=== PATIENT | male | born 1930 | race Caucasian/White ===

== ENCOUNTER → 2018-11-11 | Outpatient (CLI) | payer MEDICARE ==
[~2018-11-11] MED LIST: DIATRIZOATE MEGL/DIATRIZOA SOD 30 ML BTL PO ONE; LOSARTAN-HCTZ1 EAC1; XARELTO15 MG PO; Z.0.ASPIR 8181 MG PO; Z.0.CARDURA1 MG; Z.0.LIPITOR10 MG; Z.0.LISINOPRIL10 MG; Z.0.SYNTHROID25 MCG PO
--- NOTE | 2018-11-11 16:12 | Diagnostic Imaging Report ---
EXAM: CT Chest, Abdomen and Pelvis WITHOUT intravenous contrast INDICATION: Weight loss, reported history of multiple myeloma COMPARISON: None. TECHNIQUE: The chest, abdomen and pelvis were scanned utilizing a multidetector helical scanner from the thoracic inlet to the pubic symphysis without administration of IV contrast. Coronal and sagittal reformations were obtained. Routine protocol was performed. IV CONTRAST: None ORAL CONTRAST: Gastrografin RADIATION DOSE: Total DLP: 919.4 mGy*cm Dose modulation, iterative reconstruction, and/or weight based adjustment of the mA/kV was utilized to reduce the radiation dose to as low as reasonably achievable. FINDINGS: LINES/ TUBES: None. LUNGS AND AIRWAYS: The central airways are patent. There is posterior left lower lobe consolidation with cutoff of several left lower lobe segmental bronchi. Bilateral upper lobe predominant centrilobular emphysema. Lingular 1.9 x 1.5 cm nodule and multiple scattered left lower lobe nodules measuring up to 7 mm (series 3 image 85) Anterior right upper lobe groundglass nodule measures up to 2.1 cm (series 2 image 21). 8mm posterior right upper lobe solid nodule (series 3 image 48). PLEURA: No pleural effusion. No pneumothorax. HEART AND MEDIASTINUM: The thyroid gland is not well visualized. No supraclavicular or axillary lymphadenopathy. Multiple prominent mediastinal lymph nodes, most notably at the AP window measuring up to 2.1 x 1.9 cm (series 2 image 24). The heart is not enlarged. No pericardial effusion. Diffuse atherosclerotic calcifications involve the coronary arteries and thoracic aorta. The main pulmonary artery is enlarged, measuring up to 4.2 cm which can be seen with pulmonary artery hypertension. HEPATOBILIARY: No focal liver lesion. Status post cholecystectomy. SPLEEN: No splenomegaly. PANCREAS: No focal masses or ductal dilatation. ADRENALS: No adrenal nodules. KIDNEYS/URETERS: Bilateral simple renal cysts measuring up to 11.7 x 10.4 cm on the left and 8.0 x 6.8 cm on the right. No renal calculi or hydronephrosis. PELVIC ORGANS/BLADDER: Unremarkable. PERITONEUM / RETROPERITONEUM: No free air or fluid. LYMPH NODES: No lymphadenopathy. VESSELS: Heavy diffuse atherosclerotic calcifications of the nonaneurysmal abdominal aorta and major branches. GI TRACT: Sigmoid and descending colon diverticulosis without CT evidence of diverticulitis. BONES AND SOFT TISSUES: Midline ventral abdominal hernia containing multiple loops of contrast opacified small bowel. No acute osseous injury. Diffuse os a PA and severe degenerative changes of the visualized spine. Multiple healed left posterior rib fractures. IMPRESSION: 1. Lingular 1.9 x 1.5 cm nodule and multiple scattered left lower lobe dependent nodules measuring up to 7 mm. In conjunction with dependent left lower lobe atelectasis and associated cutoff of several segmental left lower lobe bronchi, this may represent sequela of infection and/or aspiration. However, 3 month follow-up chest CT is recommended to assess for stability and/or resolution to exclude malignant etiologies. 2. Right upper lobe 2.1cm groundglass nodule. Followup CT in 3 months as above to assess for stability of this lesion as well. 3. Pulmonary artery enlargement to 4.2 cm which can be seen with pulmonary arterial hypertension. 4. Heavy diffuse atherosclerotic arterial calcifications, including of the coronary arteries. 5. Large bilateral renal cysts measuring up to 11.7 cm on the left and 8.0 cm on the right. No renal calculi or hydronephrosis. 6. Midline ventral abdominal hernia containing multiple loops of contrast opacified small bowel. Signed by: Radha Brooks MD on 11/11/2018 4:09 PM
== END ==
LOC: CT 14:07
PROVIDERS: ATTEND Internal Medicine Nephrology
DX: Z85.79 Personal history of other malignant neoplasms of lymphoid, hematopoietic and related tissues (principal); D47.2 Monoclonal gammopathy
CPT/HCPCS: 71250; 74176

== ENCOUNTER → 2018-11-18 | Outpatient (CLI) | payer MEDICARE ==
[~2018-11-18] MED LIST changes: -DIATRIZOATE MEGL/DIATRIZOA SOD 30 ML BTL PO ONE
--- NOTE | 2018-11-19 09:08 | Diagnostic Imaging Report ---
EXAMINATION: BONE SURVEY COMP INDICATION: Anemia in chronic kidney disease COMPARISON: Chest abdomen and pelvis CT of 11/11/2018 FINDINGS: Hands: No acute fracture or dislocation. Alignment is anatomic. Scattered degenerative changes. Small (4 mm) well-circumscribed lucent lesion at the base of the left third middle phalanx. No other radiographically apparent lucent or sclerotic lesions. Forearms: No acute fracture or dislocation. Alignment is anatomic. No radiographic apparent lucent or sclerotic lesions. Elbows: No acute fracture or dislocation. Alignment is anatomic. No radiographic apparent lucent or sclerotic lesions. Shoulders: No acute fracture or dislocation. Degenerative changes involve the acromioclavicular and glenohumeral joints on both sides. Subchondral cystic changes at the left glenoid. Cortical regularity at the left acromion may be related to remote healed fracture. No definite radiographically apparent lucent or sclerotic lesions. Chest: No acute fracture or dislocation. Multiple old left posterior rib fractures. No radiographically apparent lucent or sclerotic lesions. Mild biapical pleural parenchymal thickening/scarring. The right lung is relatively clear. Patchy airspace opacity at the left mid and lower lung, silhouetting the left hemidiaphragm corresponds with the findings of the chest CT of 11/11/2018. Unchanged cardiomegaly. Sternotomy wires unchanged. Spine: Severe degenerative changes of the cervical spine with grade 1 anterolisthesis at C2-3, C3-4, and C4-5 and marked disc space narrowing and osteophyte formation. Prevertebral soft tissues are normal in thickness. No acute fracture of the cervical, thoracic, or lumbar spine. Diffuse multilevel degenerative changes. Abdomen/pelvis: Nonobstructive bowel gas pattern. No free air. Status post cholecystectomy. Degenerative changes of the visualized spine. Mild degenerative changes of both hip joints. Phleboliths in the pelvis. Femurs: No acute fracture or dislocation. Alignment is anatomic. No radiographically apparent lucent or sclerotic lesions. Diffuse atherosclerotic calcifications left greater than right. Surgical clips along the left medial thigh. Knees: No acute fracture or dislocation. No radiographically apparent lucent or sclerotic lesions. Moderate medial compartment predominant degenerative changes of both knees with joint space narrowing and osteophyte formation. Diffuse atherosclerotic popliteal calcifications. Tibia/fibula: No acute fracture or dislocation. Alignment is anatomic. No radiographically apparent lucent or sclerotic lesions. Feet: No acute fracture or dislocation. Alignment is anatomic. No radiographically apparent lucent or sclerotic lesions. Scattered degenerative changes. Skull: No displaced fracture. Paranasal sinuses appear well aerated. No radiographically apparent lucent or sclerotic lesions. IMPRESSION: No radiographic evidence of diffuse osseous metastatic disease. Multifocal degenerative changes and old fractures as detailed above. Diffuse atherosclerotic calcifications. Signed by: Radha Brooks MD on 11/19/2018 9:04 AM
== END ==
LOC: DX 07:07
PROVIDERS: ATTEND Internal Medicine
DX: D63.1 Anemia in chronic kidney disease (principal)
CPT/HCPCS: 77075

== ENCOUNTER → 2018-12-17 | Day surgery (SDC) | payer MEDICARE ==
[2018-12-12 14:39] LABS: BASOPHILS % 0.3 % (0.0-1.0); EOSINOPHILS # (AUTO) 0.2 (0.0-0.4); EOSINOPHILS % 3.4 % (0.0-6.0); HEMATOCRIT 36.4 % (38.2-49.6); HEMOGLOBIN 12.1 g/dL (14.0-18.0); LYMPHOCYTES # (AUTO) 0.6 (1.0-3.2); LYMPHOCYTES % 9.8 % (18.0-39.1); MEAN CORPUSCULAR HEMOGLOBIN 32.4 pg (28-32); MEAN CORPUSCULAR HGB CONC 33.2 g/dL (31-35); MEAN CORPUSCULAR VOLUME 97.6 fL (81-99); MONOCYTES # (AUTO) 0.4 (0.2-0.8); MONOCYTES % 7.5 % (4.4-11.3); NEUTROPHILS # (AUTO) 4.6 (2.1-6.9); NEUTROPHILS % 78.7 % (38.7-80.0); PLATELET COUNT 152 x10e3/uL (140-360); RED BLOOD COUNT 3.73 x10e6/uL (4.3-5.7); RED CELL DISTRIBUTION WIDTH 14.2 % (11.7-14.4)
[2018-12-12 14:52] LABS: ALBUMIN 3.9 g/dL (3.5-5.0); ALBUMIN/GLOBULIN RATIO 1.3 (0.8-2.0); CALCIUM 10.5 mg/dL (8.4-10.2); CREATININE, SERUM 1.84 mg/dL (0.72-1.25)
[2018-12-17] VITALS (10 sets, daily range): BP systolic 90–155; BP diastolic 55–88
[~2018-12-17] VITALS: Ht 188 cm; Wt 89.4 kg
[~2018-12-17] MED LIST changes: +ALLOPURINOL100 MG PO; +ALPRAZOLAM 0.5 MG TAB ONE; +AMLODIPINE BESYL5 MG PO; +BENZOCAINE 20% SPR 60 ML CAN ONE; +DICYCLOMINE HCL10 MG PO; +DIPHENHYDRAMINE HCL 25 MG CAP ONE; +FENTANYL CITRATE/PF 100MCG/2 ML INJ ONE; +FUROSEMIDE40 MG PO; +HEPARIN SOD/SOD CHLORIDE 2,000 ML ONE; +IOPAMIDOL 370 MG/ML 200 ML INFUS..BTL INJ ONE; +LIDOCAINE HCL 2% LOCAL 20 ML VIAL ONE; +LIDOCAINE HCL 2% LOCAL INJ 5 ML SDV VIAL INJ ONE; +METOPROLOL SUCC50 MG PO; +MIDAZOLAM HCL 2 MG/2 ML VIAL ONE; +PROPOFOL IV EMULSION 10 MG/ML 20 ML VIAL ONE; +RENA-VITE TABL0.8 MG PO; +SODIUM CHLORIDE 0.9% 1000ML 1,000 ML ONE
--- OUTSIDE RECORDS SUMMARY | 2018-12-17 07:42 | XMS REPORT | Summary of Care ---
Author Author [facility] - Health Organization [facility] - Health Address Unknown Phone Unavailable Care Team Providers Care Cut Out Operator Name Role Phone Rachel Aquino PCP Reason for Visit * Auth/Cert Referred By Contact Referred To Contact Status Reason Specialty Diagnoses / Procedures [facility]-Echo Cardio Lab [address] [place] [phone] Echocardiograph Diagnoses PERSISTANT ATRIAL FIBRILLATION P rocedures FL DOPPLER ECHO HEART,COMPLETE FL DOPPLER COLOR FLOW VELOCITY MAP FL ECHO TRANSESOPHAG R-T 2D W/PRB IMG ACQUISJ I&R Encounter Details Care Team Description Date [place] [id number] [id number], [facility] Cardiac Proc Room Anesthesia, [facility] Ep Lab Paroxysmal atrial fibrillation (Primary Dx); Presence of Watchman left atrial appendage closure device 10/31/2018 Hospital [facility] Heart [place] Encounter - Heart Station, [facility] [address] [place] [address]. [address] [place] [address] Allergies No Known Allergiesdocumented as of this encounter (statuses as of 11/01/2018) Medications End Date Status Medication Sig Dispensed Refills Start Date Suspended allopurinol 100 mg tablet Take 100 mg 0 by mouth 2 (two) times daily. Suspended metoprolol succinate XL Take 50 mg by 0 50 mg 24 hr tablet mouth daily. Suspended amLODIPine 2.5 mg tablet Take 2.5 mg 0 by mouth daily. Suspended furosemide 40 mg tablet Take 40 mg by 0 mouth daily. Suspended rivaroxaban (XARELTO) 15 Take 15 mg by 0 mg tablet mouth daily. Suspended levothyroxine 200 mcg Take 200 mcg 0 tablet by mouth every morning. documented as of this encounter (statuses as of 11/01/2018) Active Problems Problem Noted Date Presence of Watchman left atrial appendage closure device 10/31/2018 documented as of this encounter (statuses as of 11/01/2018) Social History Date Tobacco Use Types Packs/Day Years Used Never Smoker Smokeless Tobacco: Never Used Financial Resource Strain Answer Date Recorded How hard is it for you to pay for the very basics Not hard at all 10/31/2018 like food, housing, medical care, and heating? Food Insecurity Answer Date Recorded Within the past 12 months, you worried that your Never true 10/31/2018 food would run out before you got money to buy more. Within the past 12 months, the food you bought Never true 10/31/2018 just didn't last and you didn't have money to get more. Transportation Needs Answer Date Recorded In the past 12 months, has lack of transportation No 10/31/2018 kept you from medical appointments or from getting medications? In the past 12 months, has lack of transportation No 10/31/2018 kept you from meetings, work, or getting things needed for daily living? Sex Assigned at Date Recorded Not on file Industry Job Start Date Occupation Not on file Not on file Not on file Travel End Travel History Travel Start No recent travel history available. documented as of this encounter Last Filed Vital Signs Reading Time Taken Comments Vital Sign 154/104 10/31/2018 11:56 AM CDT Blood Pressure - - Pulse 35.6 C (96 F) 10/31/2018 11:56 AM CDT Temperature 16 10/31/2018 11:56 AM CDT Respiratory Rate 99% 10/31/2018 11:56 AM CDT Oxygen Saturation - - Inhaled Oxygen Concentration 93.9 kg (207 lb) 10/31/2018 11:56 AM CDT Weight 182.9 cm (6') 10/31/2018 11:56 AM CDT Height 28.07 10/31/2018 11:56 AM CDT Body Mass Index documented in this encounter Plan of Treatment Date/Time Name Type Priority Associated Diagnoses 10/31/2018 1:10 PM CDT Prepare Packed RBC (in Blood Bank Routine Paroxysmal atrial units), 2 Units fibrillation Order Schedule Name Type Priority Associated Diagnoses ONCE for 1 Occurrences starting 11/01/2018 until 11/01/2018 BASIC METABOLIC PANEL LAB Routine Presence of Watchman left (NA, K, CL, CO2, GLUCOSE, atrial appendage closure BUN, CREATININE, CA) device Health Maintenance Due Date Last Done Comments DTaP,Tdap,and Td Vaccines 1949 (1 - Tdap) Zoster Recombinant 1980 Vaccine (SHINGRIX) (1 of 2) Medicare Wellness Visit 09/01/1995 PNEUMOCOCCAL VACCINES 65+ 09/01/1995 (1 of 2 - PCV13) INFLUENZA VACCINE (#1) 2018 documented as of this encounter Procedures Comments Procedure Name Priority Date/Time Associated Diagnosis PREPARE PACKED RBC Routine 10/31/2018 Paroxysmal atrial 1:10 PM CDT fibrillation ABORH CONFIRMATION Routine 10/31/2018 12:10 PM CDT CBC WITH DIFFERENTIAL Routine 10/31/2018 Paroxysmal atrial 11:37 AM CDT fibrillation PROTHROMBIN TIME / INR Routine 10/31/2018 Paroxysmal atrial 11:37 AM CDT fibrillation CBC WITH DIFF Routine 10/31/2018 Paroxysmal atrial 11:37 AM CDT fibrillation BASIC METABOLIC PANEL Routine 10/31/2018 Paroxysmal atrial (NA, K, CL, CO2, GLUCOSE, 11:37 AM CDT fibrillation BUN, CREATININE, CA) TYPE AND SCREEN THANG 10/31/2018 Paroxysmal atrial 11:35 AM CDT fibrillation NOTICE OF PRIVACY Routine 10/31/2018 PRACTICES 10:40 AM CDT CONSENT/REFUSAL FOR Routine 10/31/2018 DIAGNOSIS AND TREATMENT 10:40 AM CDT ASSIGNMENT OF BENEFITS Routine 10/31/2018 10:40 AM CDT CATH PROCEDURE LOG Routine 10/31/2018 documented in this encounter Results * ABORH CONFIRMATION (10/31/2018 12:10 PM CDT) ABO & RH B Negative LAB Comment: Performed at [facility] Laboratory Services - [facility] Blood Bank [address] [place] [phone] Toll Free: [phone] CLIA No. [id number] Specimen Performing Organization Address City/State/Zipcode Phone Number [facility] * CBC WITH DIFFERENTIAL (10/31/2018 11:37 AM CDT) WBC 5.27 4.20 - 10.70 [facility] 10*3/L [facility] RBC 3.87 (L) 4.26 - 5.52 10*6/L [facility] HGB 12.6 12.2 - 16.4 g/dL [facility] HCT 39.2 38.4 - 49.3 % [facility] MCV 101.3 (H) 81.7 - 95.6 fL [facility] MCH 32.6 26.1 - 32.7 pg [facility] MCHC 32.1 31.2 - 35.0 g/dL [facility] RDW-SD 54.1 (H) 38.5 - 51.6 fL [facility] RDW-CV 14.6 12.1 - 15.4 % [facility] PLT 162 150 - 328 10*3/L [facility] MPV 9.4 (L) 9.8 - 13.0 fL [facility] NRBC/100 WBC 0.0 0.0 - 10.0 /100 WBCs [facility] NRBC x10^3 <0.01 10*3/L [facility] GRAN MAT (NEUT) 75.6 % [facility] % [facility] IMM GRAN % 0.60 % [facility] LYMPH % 11[facility]8 % [facility] MONO % 6.8 % [facility] EOS % 4.6 % [facility] BASO % 0.6 % [facility] GRAN MAT 3.99 1.99 - 6.95 10*3/uL [facility] x10^3(ANC) [facility] IMM GRAN x10^3 0.03 0.00 - 0.06 10*3/uL [facility] LYMPH x10^3 0.62 (L) 1.09 - 3.23 10*3/uL [facility] MONO x10^3 0.36 0.36 - 1.02 10*3/uL [facility] EOS x10^3 0.24 0.06 - 0.53 10*3/uL [facility] BASO x10^3 0.03 0.01 - 0.09 10*3/uL [facility] Specimen Blood Performing Organization Address City/State/Zipcode Phone Number [facility] CLIA: [id number], [address] [place], [place] [id number] [facility] * BASIC METABOLIC PANEL (NA, K, CL, CO2, GLUCOSE, BUN, CREATININE, CA) (10/31/2018 11:37 AM CDT) NA 137 135 - 145 mmol/L [facility] K 3.7 3.5 - 5.0 mmol/L [facility] CL 99 98 - 108 mmol/L [facility] CO2 TOTAL 27 23 - 31 mmol/L [facility] AGAP 11 2 - 16 [facility] BUN 27 (H) 7 - 23 mg/dL [facility] GLUCOSE 98 70 - 110 mg/dL [facility] CREATININE 1.75 (H) 0.60 - 1.25 mg/dL [facility] CALCIUM 9.7 8.6 - 10.6 mg/dL [facility] eGFR 37.0 mL/min/1.73m2 [facility] Calculation [facility] ([facility] eGFR 44.8 mL/min/1.73m2 [facility] Calculation [facility] ([facility]) Specimen Blood Narrative Performed At Association of Glomerular Filtration Rate (GFR) and Staging of Kidney Disease* [facility] + + + + [facility] | GFR (mL/min/1.73 m2)| With Kidney Damage|Without Kidney Damage CAMPUS + + + + |>90|Stage one| Normal + + + + |60-89|Stage two| Decreased GFR + + + + |30-59|Stage three| Stage three + + + + |15-29|Stage four | Stage four + + + + |<15 (or dialysis)|Stage five | Stage five + + + + *Each stage assumes the associated GFR level has been in effect for at least three months.Stages 1 to 5, with or without kidney disease, indicate chronic kidney disease. Notes: Determination of stages one and two (with eGFR >59mL/min/1.73 m2) requires estimation of kidney damage for at least three months as defined by structural or functional abnormalities of the kidney, manifested by either: Pathological abnormalities or Markers of kidney damage (including abnormalities in the composition of the blood or urine or abnormalities in imaging tests). Performing Organization Address City/State/Zipcode Phone Number [facility] CLIA: [id number], [address] [place] [address] [facility] * PROTHROMBIN TIME / INR (10/31/2018 11:37 AM CDT) PROTIME PATIENT 16.1 (H) 10.1 - 12.6 Seconds [facility] INR 1.5Comment: Normal INR <1.1; [facility] Warfarin Therapeutic range 2.0 [facility] to 3.0 or 2.5 to 3.5, [facility] depending upon the indications. Specimen Blood Performing Organization Address City/[facility] Phone Number [facility] CLIA: [id number], [address] [place] [address] [facility] * Type and Screen - ONCE THANG (10/31/2018 11:35 AM CDT) ABO & RH B Negative LAB Comment: Performed at [facility] Laboratory Services - [facility] [address] [place] [phone] Toll Free: [phone] CLIA No. [id number] IAT Negative LAB Comment: Performed at [facility] Laboratory Services - [facility] [address] [place], [place] [address] Toll Free: [phone] CLIA No. [id number] Specimen VENOUS Performing Organization Address City/State/Zipcode Phone Number [facility] documented in this encounter Visit Diagnoses Diagnosis Paroxysmal atrial fibrillation - Primary Atrial fibrillation Presence of Watchman left atrial appendage closure device documented in this encounter Insurance Type Payer Benefit Subscriber ID Effective Phone Address Plan / Dates Group Medicare Adv [facility] [employer] [id number] 2018-P MANAGED MEDICARE MEDICARE resent COMPLETE documented as of this encounter"
--- OUTSIDE RECORDS SUMMARY | 2018-12-17 07:42 | XMS REPORT | Summary of Care ---
Author Author [facility] - Health Organization [facility] - Health Address Unknown Phone Unavailable Care Team Providers Care District Agent Name Role Phone Rachel Aquino [place] PCP Reason for Visit * Reason Comments Pre-Visit Planning Encounter Details Care Team Description Date [place] [address] [address] Pre-Visit Planning 10/25/2018 Telephone [facility] [place] Machine [facility], [address] [phone] Allergies No Known Allergiesdocumented as of this encounter (statuses as of 11/05/2018) Medications No known medicationsdocumented as of this encounter (statuses as of 11/05/2018) Active Problems Problem Noted Date Elective surgical procedure 11/01/2018 Presence of Watchman left atrial appendage closure device 10/31/2018 documented as of this encounter (statuses as of 11/05/2018) Social History Date Tobacco Use Types Packs/Day Years Used Never Assessed Sex Assigned at Date Recorded Not on file Industry Job Start Date Occupation Not on file Not on file Not on file Travel End Travel History Travel Start No recent travel history available. documented as of this encounter Last Filed Vital Signs Reading Time Taken Comments Vital Sign - - Blood Pressure - - Pulse - - Temperature - - Respiratory Rate - - Oxygen Saturation - - Inhaled Oxygen Concentration 93.4 kg (206 lb) 10/25/2018 4:00 PM CDT Weight 188 cm (6' 2") 10/25/2018 4:00 PM CDT Height 26.45 10/25/2018 4:00 PM CDT Body Mass Index documented in this encounter Plan of Treatment Health Maintenance Due Date Last Done Comments DTaP,Tdap,and Td Vaccines 1949 (1 - Tdap) Zoster Recombinant 1980 Vaccine (SHINGRIX) (1 of 2) Medicare Wellness Visit 09/01/1995 PNEUMOCOCCAL VACCINES 65+ 09/01/1995 (1 of 2 - PCV13) INFLUENZA VACCINE (#1) 2018 documented as of this encounter Results Not on filedocumented in this encounter Insurance Type Payer Benefit Subscriber ID Effective Phone Address Plan / Dates Group Medicare [facility] [id number] 2018-P MANAGED MEDICARE MEDICARE resent COMPLETE documented as of this encounter
--- OUTSIDE RECORDS SUMMARY | 2018-12-17 07:42 | XMS REPORT ---
Author Author [facility] Address Unknown Phone Unavailable Care Team Providers Care Aadc Plans Staff Officer Name Role Phone JOE BLAKE Unavailable Unavailable RICA MURRAY Unavailable Unavailable Problems This patient has no known problems. Allergies, Adverse Reactions, Alerts This patient has no known allergies or adverse reactions. Medications This patient has no known medications. Results Test Description Test Time Test Comments Text Results Atomic Results Result Comments BONE SURVEY COMP 2018-11-19 08:43:00 [place] [address] Patient Name: KOFFI MCLEOD MR #: [id number] : 1930 Age/Sex: 88/M Req #: [id number] Adm Physician: Ordered by: JOE BLAKE M.D. Report #: [id number] Location: DX Room/Bed: Procedure: [id number] DX/BONE SURVEY COMP Exam Date: 11/18/18 Exam Time: 0725 REPORT STATUS: Signed EXAMINATION: BONE SURVEY COMP INDICATION: Anemia in chronic kidney disease COMPARISON: Chest abdomen and pelvis CT of 11/11/2018 FINDINGS: Hands: No acute fracture or dislocation. Alignment is anatomic. Scattered degenerative changes. Small (4 mm) well-circumscribed lucent lesion at the base of the left third middle phalanx. No other radiographically apparent lucent or sclerotic lesions. Forearms: No acute fracture or dislocation. Alignment is anatomic. No radiographic apparent lucent or sclerotic lesions. Elbows: No acute fracture or dislocation. Alignment is anatomic. No radiographic apparent lucent or sclerotic lesions. Shoulders: No acute fracture or dislocation. Degenerative changes involve the acromioclavicular and glenohumeral joints on both sides. Subchondral cystic changes at the left glenoid. Cortical regularity at the left acromion may be related to remote healed fracture. No definite radiographically apparent lucent or sclerotic lesions. Chest: No acute fracture or dislocation. Multiple old left posterior rib fractures. No radiographically apparent lucent or sclerotic lesions. Mild biapical pleural parenchymal thickening/scarring. The right lung is relatively clear. Patchy airspace opacity at the left mid and lower lung, silhouetting the left hemidiaphragm corresponds with the findings of the chest CT of 11/11/2018. Unchanged cardiomegaly. Sternotomy wires uncha nged. Spine: Severe degenerative changes of the cervical spine with grade 1 anterolisthesis at C2-3, C3-4, and C4-5 and marked disc space narrowing and osteophyte formation. Prevertebral soft tissues are normal in thickness. No acute fracture of the cervical, thoracic, or lumbar spine. Diffuse multilevel degenerative changes. Abdomen/pelvis: Nonobstructive bowel gas pattern. No free air. Status post cholecystectomy. Degenerative changes of the visualized spine. Mild degenerative changes of both hip joints. Phleboliths in the pelvis. Femurs: No acute fracture or dislocation. Alignment is anatomic. No radiographically apparent lucent or sclerotic lesions. Diffuse atherosclerotic calcifications left greater than right. Surgical clips along the left medial thigh. Knees: No acute fracture or dislocation. No radiographically apparent lucent or sclerotic lesions. Moderate medial compartment predominant degenerative changes of both knees with joint space narrowing and osteophyte formation. Diffuse atherosclerotic popliteal calcifications. Tibia/fibula: No acute fracture or dislocation. Alignment is anatomic. No radiographically apparent lucent or sclerotic lesions. Feet: No acute fracture or dislocation. Alignment is anatomic. No radiographically apparent lucent or sclerotic lesions. Scattered degenerative changes. Skull: No displaced fracture. Paranasal sinuses appear well aerated. No radiographically apparent lucent or sclerotic lesions. IMPRESSION: No radiographic evidence of diffuse osseous metastatic disease. Multifocal degenerative changes and old fractures as detailed above. Diffuse atherosclerotic calcifications. Signed by: Adelaide Raymundo MD on 11/19/2018 9:04 AM Dictated By: ADELAIED RAYMUNDO MD 3 Transcribed By: DUSTIN on 11/19/18903 COPY TO: JOE BLAKE M.D. CT ABDOMEN/PELVIS WO 2018-11-11 15:44:00 [place] [address] Patient Name: KOFFI MCLEOD MR #: [id number] : 1930 Age/Sex: 88/M Req #: [id number] Adm Physician: Ordered by: RICA MURRAY MD Report #: [id number] Location: CT Room/Bed: Procedure: [id number] CT/CT ABDOMEN/PELVIS WO Exam Date: 11/11/18 Exam Time: 1500 REPORT STATUS: Signed EXAM: CT Chest, Abdomen and Pelvis WITHOUT intravenous contrast INDICATION: Weight loss, reported history of multiple myeloma COMPARISON: None. TECHNIQUE: The chest, abdomen and pelvis were scanned utilizing a multidetector helical scanner from the thoracic inlet to the pubic symphysis without administration of IV contrast. Coronal and sagittal reformations were obtained. Routine protocol was performed. IV CONTRAST: None ORAL CONTRAST: Gastrografin RADIATION DOSE: Total DLP: 919.4 mGy*cm Dose modulation, iterative reconstruction, and/or weight based adjustment of the mA/kV was utilized to reduce the radiation dose to as low as reasonably achievable. FINDINGS: LINES/ TUBES: None. LUNGS AND AIRWAYS: The central airways are patent. There is posterior left lower lobe consolidation with cutoff of several left lower lobe segmental bronchi. Bilateral upper lobe predominant centrilobular emphysema. Lingular 1.9 x 1.5 cm nodule and multiple scattered left lower lobe nodules measuring up to 7 mm (series 3 image 85) Anterior right upper lobe groundglass nodule measures up to 2.1 cm (series 2 image 21). 8mm posterior right upper lobe solid nodule (series 3 image 48). PLEURA: No pleural effusion. No pneumothorax. HEART AND MEDIASTINUM: The thyroid gland is not well visualized. No supraclavicular or axillary lymphadenopathy. Multiple prominent mediastinal lymph nodes, most notably at the AP window measuring up to 2.1 x 1.9 cm (series 2 image 24). The heart is not enlarged. No pericardial effusion. Diffuse atherosclerotic calcifications involve the coronary arteries and thoracic aorta. The main pulmonary artery is enlarged, measuring up to 4.2 cm which can be seen with pulmonary artery hypertension. HEPATOBILIARY: No focal liver lesion. Status post cholecystectomy. SPLEEN: No splenomegaly. PANCREAS: No focal masses or ductal dilatation. ADRENALS: No adrenal nodules. KIDNEYS/URETERS: Bilateral simple renal cysts measuring up to 11.7 x 10.4 cm on the left and 8.0 x 6.8 cm on the right. No renal calculi or hydronephrosis. PELVIC ORGANS/BLADDER: Unremarkable. PERITONEUM / RETROPERITONEUM: No free air or fluid. LYMPH NODES: No lymphadenopathy. VESSELS: Heavy diffuse atherosclerotic calcifications of the nonaneurysmal abdominal aorta and major branches. GI TRACT: Sigmoid and descending colon diverticulosis without CT evidence of diverticulitis. BONES AND SOFT TISSUES: Midline ventral abdominal hernia containing multiple loops of contrast opacified small bowel. No acute osseous injury. Diffuse os a PA and severe degenerative changes of the visualized spine. Multiple healed left posterior rib fractures. IMPRESSION: 1. Lingular 1.9 x 1.5 cm nodule and multiple scattered left lower lobe dependent nodules measuring up to 7 mm. In conjunction with dependent left lower lobe atelectasis and associated cutoff of several segmental left lower lobe bronchi, this may represent sequela of infection and/or aspiration. However, 3 month follow-up chest CT is recommended to assess for stability and/or resolution to exclude malignant etiologies. 2. Right upper lobe 2.1cm groundglass nodule. Followup CT in 3 months as above to assess for stability of this lesion as well. 3. Pulmonary artery enlargement to 4.2 cm which can be seen with pulmonary arterial hypertension. 4. Heavy diffuse atherosclerotic arterial calcifications, including of the coronary arteries. 5. Large bilateral renal cysts measuring up to 11.7 cm on the left and 8.0 cm on the right. No renal calculi or hydronephrosis. 6. Midline ventral abdominal hernia containing multiple loops of contrast opacified small bowel. Signed by: Adelaide Raymundo MD on 11/11/2018 4:09 PM Dictated By: ADELAIDE RAYMUNDO MD 160 Transcribed By: DUSTIN on 11/11/18 160 COPY TO: RICA MURRAY MD CT CHEST WO 2018-11-11 15:44:00 [place] [address] Patient Name: KOFFI MCLEOD MR #: [id number] : 1930 Age/Sex: 88/M Req #: [id number] Adm Physician: Ordered by: RICA MURRAY MD Report #: [id number] Location: CT Room/Bed: Procedure: [id number] CT/CT CHEST WO Exam Date: 11/11/18 Exam Time: 1500 REPORT STATUS: Signed EXAM: CT Chest, Abdomen and Pelvis WITHOUT intravenous contras t INDICATION: Weight loss, reported history of multiple myeloma COMPARISON: None. TECHNIQUE: The chest, abdomen and pelvis were scanned utilizing a multidetector helical scanner from the thoracic inlet to the pubic symphysis without administration of IV contrast. Coronal and sagittal reformations were obtained. Routine protocol was performed. IV CONTRAST: None ORAL CONTRAST: Gastrografin RADIATION DOSE: Total DLP: 919.4 mGy*cm Dose modulation, iterative reconstruction, and/or weight based adjustment of the mA/kV was utilized to reduce the radiation dose to as low as reasonably achievable. FINDINGS: LINES/ TUBES: None. LUNGS AND AIRWAYS: The central airways are patent. There is posterior left lower lobe consolidation with cutoff of several left lower lobe segmental bronchi. Bilateral upper lobe predominant centrilobular emphysema. Lingular 1.9 x 1.5 cm nodule and multiple scattered left lower lobe nodules measuring up to 7 mm (series 3 image 85) Anterior right upper lobe groundglass nodule measures up to 2.1 cm (series 2 image 21). 8mm posterior right upper lobe solid nodule (series 3 image 48). PLEURA: No pleural effusion. No pneumothorax. HEART AND MEDIASTINUM: The thyroid gland is not well visualized. No supraclavicular or axillary lymphadenopathy. Multiple prominent mediastinal lymph nodes, most notably at the AP window measuring up to 2.1 x 1.9 cm (series 2 image 24). The heart is not enlarged. No pericardial effusion. Diffuse atherosclerotic calcifications involve the coronary arteries and thoracic aorta. The main pulmonary artery is enlarged, measuring up to 4.2 cm which can be seen with pulmonary artery hypertension. HEPATOBILIARY: No focal liver lesion. Status post cholecystectomy. SPLEEN: No splenomegaly. PANCREAS: No focal masses or ductal dilatation. ADRENALS: No adrenal nodules. KIDNEYS/URETERS: Bilateral simple renal cysts measuring up to 11.7 x 10.4 cm on the left and 8.0 x 6.8 cm on the right. No renal calculi or hydronephrosis. PELVIC ORGANS/BLADDER: Unremarkable. PERITONEUM / RETROPERITONEUM: No free air or fluid. LYMPH NODES: No lymphadenopathy. VESSELS: Heavy diffuse atherosclerotic calcifications of the nonaneurysmal abdominal aorta and major branches. GI TRACT: Sigmoid and descending colon diverticulosis without CT evidence of diverticulitis. BONES AND SOFT TISSUES: Midline ventral abdominal hernia containing multiple loops of contrast opacified small bowel. No acute osseous injury. Diffuse os a PA and severe degenerative changes of the visualized spine. Multiple healed left posterior rib fractures. IMPRESSION: 1. Lingular 1.9 x 1.5 cm nodule and multiple scattered left lower lobe dependent nodules measuring up to 7 mm. In conjunction with dependent left lower lobe atelectasis and associated cutoff of several segmental left lower lobe bronchi, this may represent sequela of infection and/or aspiration. However, 3 month follow-up chest CT is recommended to assess for stability and/or resolution to exclude malignant etiologies. 2. Right upper lobe 2.1cm groundglass nodule. Followup CT in 3 months as above to assess for stability of this lesion as well. 3. Pulmonary artery enlargement to 4.2 cm which can be seen with pulmonary arterial hypertension. 4. Heavy diffuse atherosclerotic arterial calcifications, including of the coronary arteries. 5. Large bilateral renal cysts measuring up to 11.7 cm on the left and 8.0 cm on the right. No renal calculi or hydronephrosis. 6. Midline ventral abdominal hernia containing multiple loops of contrast opacified small bowel. Signed by: Adelaide Raymundo MD on 11/11/2018 4:09 PM Dictated By: ADELAIDE RAYMUNDO MD 1600 Transcribed By: DUSTIN on 11/11/18 1606 COPY TO: RICA MURRAY MD
--- OUTSIDE RECORDS SUMMARY | 2018-12-17 07:42 | XMS REPORT | Summary of Care ---
Author Author [facility] - Health Organization [facility] - Health Address Unknown Phone Unavailable Care Team Providers Care Corrugator Supervisor Name Role Phone Rachel Aquino PCP Reason for Visit * Reason Comments Transition Of Care Encounter Details Care Team Description Date Type Department Lucia Da Silva RN [address] [place] [address] [id number] Transition Of Care 11/04/2018 Transition of [facility] Allergies No Known Allergiesdocumented as of this encounter (statuses as of 11/04/2018) Medications End Date Status Medication Sig Dispensed Refills Start Date Active allopurinol 100 mg tablet Take 100 mg 0 by mouth 2 (two) times daily. Active metoprolol succinate XL Take 50 mg by 0 50 mg 24 hr tablet mouth daily. Active amLODIPine 2.5 mg tablet Take 2.5 mg 0 by mouth daily. Active furosemide 40 mg tablet Take 40 mg by 0 mouth daily. Active rivaroxaban (XARELTO) 15 Take 15 mg by 0 mg tablet mouth daily. Active levothyroxine 200 mcg Take 200 mcg 0 tablet by mouth every morning. documented as of this encounter (statuses as of 11/04/2018) Active Problems Problem Noted Date Elective surgical procedure 11/01/2018 Presence of Watchman left atrial appendage closure device 10/31/2018 documented as of this encounter (statuses as of 11/04/2018) Social History Date Tobacco Use Types Packs/Day [...] of this encounter Last Filed Vital Signs Not on filedocumented in this encounter Plan of Treatment Health [...] Address Plan / Dates Group Medicare Adv O [facility] [id number] 2018-P MANAGED MEDICARE MEDICARE resent COMPLETE documented as of this encounter
--- OUTSIDE RECORDS SUMMARY | 2018-12-17 07:42 | XMS REPORT | Summary of Care ---
Author Author [facility] Address Unknown Phone Unavailable Care Team Providers Care Performance Tester Name Role Phone Rachel Aquino PCP Reason for Referral * (Routine) Referred By Contact Referred To Contact Status Reason Specialty Diagnoses / Procedures Reanna Birmingham MD [address] [address] Rachel Aquino [address] [address] New Request Diagnoses Presence of Watchman left atrial appendage closure device Elective surgical procedure P rocedures Discharge Follow-up: PCP RACHEL AQUINO; 2 Weeks * (Routine) Referred By Contact Referred To Contact Status Reason Specialty Diagnoses / [place] [address] [place] [address] New Request UNKNOWN Diagnoses PHYSICIAN Presence of SPECIALTY Watchman left atrial appendage closure device Elective surgical procedure P rocedures Discharge Follow-Up: Specialty Service UNKNOWN PHYSICIAN SPECIALTY; 2 Weeks Reason for Visit * Auth/Cert Referred By Contact Referred To Contact Status Reason Specialty Diagnoses / Procedures [facility] [address] [place] [address] Echocardiograph Diagnoses PERSISTANT ATRIAL FIBRILLATION P rocedures GA DOPPLER ECHO HEART,COMPLETE GA DOPPLER COLOR FLOW VELOCITY MAP GA ECHO TRANSESOPHAG R-T 2D W/PRB IMG ACQUISJ I&R Encounter Details Care Team Description Date [place] [address] [place] [address] [phone] [place] [address] [facility] [address] [place] [address] [phone] 1, Cl[facility] Director Of Communications Elective surgical procedure 10/31/2018 [facility] - Encounter Medicine/Surgery [facility] 7B 11/01/2018 [address] [place] [address] Allergies No Known Allergiesdocumented as of this [...] of 11/01/2018) Active Problems Problem Noted Date Elective surgical procedure 11/01/2018 Presence of Watchman left atrial appendage closure device 10/31/2018 documented as of this encounter (statuses as of 11/01/2018) Social History Date Tobacco Use Types Packs/Day Years Used Never Smoker Smokeless Tobacco: Never Used Tobacco Cessation: Counseling Given: No Financial Resource Strain Answer Date Recorded How [...] Signs Reading Time Taken Comments Vital Sign 134/56 11/01/2018 12:00 PM CDT Blood Pressure 52 11/01/2018 12:00 PM CDT Pulse 35.9 C (96.6 F) 11/01/2018 12:00 PM CDT Temperature 16 11/01/2018 12:00 PM CDT Respiratory Rate 100% 11/01/2018 12:00 PM CDT Oxygen Saturation - - Inhaled Oxygen Concentration 93.4 kg (206 lb) 10/31/2018 8:00 PM CDT Weight 188 cm (6' 2") 10/31/2018 8:00 PM CDT Height 26.45 10/31/2018 8:00 PM CDT Body Mass Index documented in this encounter Discharge Instructions * Attachments The following attachments cannot be sent through Care Everywhere.* Rivaroxaban oral tablets (Eritrean) * Surgical Site Infections, Preventing (Eritrean) * Atrial Fibrillation, Understanding (Eritrean) * Atrial Flutter/Fibrillation, What Is (Eritrean) documented in this encounter Progress Notes * Susie Robles, RN - 11/01/2018 12:30 PM CDT Care Management Social Functional Assessment Patient Name: Alex Gordon Age: [age] year old Sex: male Previous admit date: N/A Current diagnosis and co-morbidities: PERSISTANT ATRIAL FIBRILLATION Readmission Questions: Was patient discharged from any acute care hospital within the last 30 days: No Social Functional Assessment: Primary language spoken/preferred: Eritrean Mental Status: Alert & Oriented to Person,Place & Time Information given by: Self Patient's support system: Spouse Name and number of support system: Spouse Marlene Gordon [phone] Primary Hand Worker: Self MPOA: No;Same as support system Living Arrangement: Home: single story Address of living arrangement : [address] [place] [address] Persons living in home: Self;Spouse;Same as support system Barriers to returning home: None Baseline functional status- ambulation: Independent Functional status-baseline personal care: Independent Baseline functional status- driving: Independent Baseline functional status- grocery shopping: Independent Functional status-baseline housekeeping: Independent Functional status-baseline meal prep: Independent Current functional status same as prior: Yes Do you have a PCP?: Yes Name of PCP: Rachel Aquino Home Health Care Agency: No Provider Services: No DME Company: No Equipment: None Hemodialysis: No Community resources utilized: None Funding Resources: Medicare Replacement Prescription coverage plan: Medicare Part D Pharmacy where meds are filled: Other Other pharmacy: [facility] [place] Anticipated services prior to disharge: Continue Medical Eval Expected mode of discharge transportation: Personal vehicle;Same as support syst em Additional info required for discharge planning: No needs identified;Pending med ical evaluation Recommended discharge plan: Home SFA Complete: Social Functional Assessment complete: Yes Alcohol Use Screening (AUDIT-C) How often do you have a drink containing alcohol?: Never SCORE: 0 Role of Care Management explained. * Aster Leary FNP - 11/01/2018 9:27 AM CDT Brief Post Watchman Procedure Right groin suture removed without complications. Pt denies any pain to site. Si te clean, dry, soft, and without hematoma. Gauze and tegaderm placed. Wound care instructions and infection warning signs given to patient. Patient verbalized u nderstanding. Patient tolerated procedure well. NASH Goldman 11/01/2018 9:27 AM documented in this encounter Plan of Treatment Health Maintenance Due Date Last Done Comments DTaP,Tdap,and Td Vaccines 1949 (1 - Tdap) Zoster Recombinant 1980 Vaccine (SHINGRIX) (1 of 2) Medicare Wellness Visit 09/01/1995 PNEUMOCOCCAL VACCINES 65+ 09/01/1995 (1 of 2 - PCV13) INFLUENZA VACCINE (#1) 2018 documented as of this encounter Procedures Comments Procedure Name Priority Date/Time Associated Diagnosis BASIC METABOLIC PANEL Routine 11/01/2018 Presence of Watchman left (NA, K, CL, CO2, GLUCOSE, 11:03 AM CDT atrial appendage closure BUN, CREATININE, CA) device documented in this encounter Results * BASIC METABOLIC PANEL (NA, K, CL, CO2, GLUCOSE, BUN, CREATININE, CA) (11/01/2018 11:03 AM CDT) NA 134 (L) 135 - 145 mmol/L [facility] K 4.0Comment: Slight hemolysis 3.5 - 5.0 mmol/L [facility] CL 101 98 - 108 mmol/L [facility] CO2 TOTAL 25 23 - 31 mmol/L [facility] AGAP 8 2 - 16 [facility] BUN 31 (H)Comment: Slight 7 - 23 mg/dL [facility] hemolysis [facility] GLUCOSE 131 (H) 70 - 110 mg/dL [facility] CREATININE 1.64 (H) 0.60 - 1.25 mg/dL [facility] CALCIUM 8.2 (L) 8.6 - 10.6 mg/dL [facility] eGFR 39.8 mL/min/1.73m2 [facility] Calculation [facility] ([facility]) eGFR 48.3 mL/min/1.73m2 [facility] Calculation [facility] ([facility]) Specimen Blood - ARM, LEFT Narrative Performed At Association of Glomerular Filtration Rate (GFR) and Staging of Kidney Disease* [facility] + + + + [facility] | GFR (mL/min/1.73 m2)| With Kidney Damage|Without [...] tests). Performing Organization Address City/State/Zipcode Phone Number [facility] CLIA: [id number], [address] [place] [address] SERVICES-[facility] documented in this encounter Visit Diagnoses Diagnosis Presence of Watchman left atrial appendage closure device - Primary Elective surgical procedure Unspecified elective surgery for purposes other than remedying health states documented in this encounter Administered Medications Action Date Dose Rate Site Medication Order MAR Action acetaminophen (TYLENOL) tablet 650 mg 650 mg, Oral, Q6HPRN, Starting Kristen 10/31/18 at 1806, Until Discontinued, Routine, Pain (scale 1-3) acetaminophen-codeine (TYLENOL #3) 300-30 mg tablet 1 tablet 1 tablet, Oral, Q6HPRN, Starting Kristen 10/31/18 at 1806, Until 11/02/18 at 1805, Routine, Pain (scale 4-6) 11/01/2018 9:30 AM CDT 100 mg allopurinol (ZYLOPRIM) tablet 100 mg Given 100 mg, Oral, DAILY, First dose on Sun11/01/18 at 0930, Until Discontinued, Routine 11/01/2018 11:02 AM CDT 2.5 mg amLODIPine (NORVASC) tablet 2.5 mg Given 2.5 mg, Oral, DAILY, First dose on Sun11/01/18 at 0930, Until Discontinued, Routine 11/01/2018 11:02 AM CDT 40 mg furosemide (LASIX) tablet 40 mg Given 40 mg, Oral, DAILY, First dose on Sun11/01/18 at 0930, Until Discontinued, Routine HYDROcodone-acetaminophen (NORCO) 10-325 mg tablet 1 tablet 1 tablet, Oral, Q6HPRN, Starting Kristen 10/31/18 at 1806, Until Discontinued, Routine, Pain (scale 7-10) 11/01/2018 11:02 AM CDT 50 mg metoprolol tartrate (LOPRESSOR) tablet Given 50 mg 50 mg, Oral, DAILY, First dose on Sun11/01/18 at 0930, Until Discontinued, Routine 11/01/2018 9:19 AM CDT 15 mg rivaroxaban (XARELTO) tablet 15 mg Given 15 mg, Oral, DAILY, First dose on Sun11/01/18 at 0900, Until Discontinued, Routine documented in this encounter Insurance Type Payer Benefit Subscriber ID Effective Phone Address Plan / Dates Group Medicare Adv O [facility] [id number] 2018-P MANAGED MEDICARE MEDICARE resent COMPLETE documented as of this encounter
--- NOTE | 2018-12-17 12:15 | NUR ---
1215 Received in room #7 computer laboratory technician recovery,bedside report received from LUIZ George. Alert oriented and appropriate, PERRLA, respirations even and unlabored to room air. Pulses x4 extremities equal and strong. Pedal pulses PT/DP X4 palpable and 3+pedal bilateral edema Cap fill brisk < 3 sec. + neurovascular function at this time Skin warm and dry integrity appears D/I. IV 20g to left presents healthy w/o s/s of infiltration or complaint. Abdomen soft and supple. pt offered toileting, denies need to urinate or defecate. No personal affects with patient. Family at bedside. Pt and family verbalizes understanding of POC. Currently w/o complaint of pain or need. Rt Mynx dressing dry and intact. No gross issues pain pallor pressure or edema. ds/rn
--- NOTE | 2018-12-17 13:16 | Operative Report ---
DATE OF PROCEDURE: 12/17/2018 SURGEON: Rolando Villa MD INDICATIONS: Coronary artery disease and congestive heart failure. PROCEDURES PERFORMED: 1. Left heart catheterization, selective coronary angiography. 2. Selective cannulation of one arterial and three venous bypass conduits. 3. Deployment of right groin Mynx closure device. COMPLICATIONS: None. RECOMMENDATIONS: Medical therapy including consideration of a BUSINESS INSTRUCTOR P placement. DESCRIPTION OF PROCEDURE: Access obtained in the right femoral artery. A 6-Chinese sheath was placed. Coronary angiography demonstrated patent left main. Left anterior descending artery is completely occluded. Circumflex 90% stenosis. Right coronary artery 90% stenosis. Mid portion distally, the vessel was completely occluded. Left internal mammary artery bypass to left anterior descending artery is widely patent. Saphenous artery, saphenous vein graft to diagonal artery widely patent. Saphenous vein graft to obtuse marginal branch widely patent. Saphenous vein branch, saphenous vein graft to right posterior descending widely patent. No intervention deemed necessary. Right groin repaired using Mynx closure device. The patient discharged home same day. MD SHAILA Nuñez/MAYRAL /[id number]
--- NOTE | 2018-12-17 14:30 | NUR ---
1430 Pt meets DC criteria. rt Mynx site assessed for s/s of complication and presence of hematoma. Skin warm, dry, no discolor, and pulses present. IV removed from left hand Distal tip appears intact. VS WNL. Pt denies pain, sob, or need at this time. Family at at bedside.Review of discharge paperwork and follow up instructions. verbalized understanding. Pt to wheelchair and transported to front of hospital. Transferred to private vehicle under own strength w/o incident with DC paperwork in hand. - ds/rn
== END | disposition home or self-care (01) ==
LOC: CATH LAB 07:38
PROVIDERS: ATTEND Internal Medicine Interventional Cardiology
DX: I25.708 Atherosclerosis of coronary artery bypass graft(s), unspecified, with other forms of angina pectoris (principal); I48.91 Unspecified atrial fibrillation; I11.0 Hypertensive heart disease with heart failure; I50.9 Heart failure, unspecified; I35.0 Nonrheumatic aortic (valve) stenosis; E03.9 Hypothyroidism, unspecified; Z01.812 Encounter for preprocedural laboratory examination; Z79.02 Long term (current) use of antithrombotics/antiplatelets; Z95.1 Presence of aortocoronary bypass graft; Z87.891 Personal history of nicotine dependence; Z82.49 Family history of ischemic heart disease and other diseases of the circulatory system
CPT/HCPCS: 36415; 80053; 85025; 93307; 93312; 93320; 93325; 93455; C1760; C1769; J2001 ×2; J2250; J2704; J3010; J7030; Q9967; 93454; 99152

== ENCOUNTER → 2019-01-27 | Outpatient (CLI) | payer MEDICARE ==
[~2019-01-27] MED LIST changes: -ALPRAZOLAM 0.5 MG TAB ONE; -BENZOCAINE 20% SPR 60 ML CAN ONE; -DIPHENHYDRAMINE HCL 25 MG CAP ONE; -HEPARIN SOD/SOD CHLORIDE 2,000 ML ONE; -IOPAMIDOL 370 MG/ML 200 ML INFUS..BTL INJ ONE; +LIDOCAINE HCL 1% LOCAL INJ 20 ML VIAL ONE; -LIDOCAINE HCL 2% LOCAL 20 ML VIAL ONE; -LIDOCAINE HCL 2% LOCAL INJ 5 ML SDV VIAL INJ ONE; -PROPOFOL IV EMULSION 10 MG/ML 20 ML VIAL ONE; -SODIUM CHLORIDE 0.9% 1000ML 1,000 ML ONE
[2019-01-27 11:05] LABS: HEMOGLOBIN 11.6 g/dL (14.0-18.0)
[2019-01-27 11:10] LABS: INR 0.98; PARTIAL THROMBOPLASTIN TIME 29.5 seconds (23.8-35.5); PROTHROMBIN TIME 13.5 seconds (11.9-14.5)
--- NOTE | 2019-01-27 13:26 | Diagnostic Imaging Report ---
CT guided left lower lobe mass biopsy History: Lower lobe mass. Modality: CT Anesthesia: Two percent Lidocaine without epinephrine. Approach: Midaxillary line Estimated blood loss: < 5 cc. Specimen: 4 20-gauge core biopsy specimens. floating operator: Alfredito Washington MD. Veneer Jointer Returner: None. Dose modulation, iterative reconstruction, and/or weight based adjustment of the mA/kV was utilized to reduce the radiation dose to as low as reasonably achievable. Technique: Informed written consent was obtained. Discussion of risks, benefits, and alternatives were made with the patient. The patient expressed understanding and agreed to proceed. A universal timeout was performed prior to starting the procedure. The patient was placed supine on the CT table and a limited noncontrast CT of the chest was performed which revealed dense consolidation/mass and the left lower lobe. This mass was targeted for biopsy. The patient's skin was marked, prepped exiting, and draped in usual sterile fashion. Local anesthesia was achieved with lidocaine. Under intermittent CT guidance a 19-gauge coaxial introducer needle was advanced into the mass. Once the needle tip was within the cable way operator stylette was removed and a 20-gauge sidecutting core needle biopsy was used to obtain a sample. The sample was assessed for adequacy by pathology. 3 additional core biopsy specimens were then obtained in order to obtain enough tissue for molecular testing. The needles were then removed. A postprocedure CT scan demonstrated no evidence of pneumothorax formation. The skin injury site with stress with a sterile dressing. The patient tolerated the procedure well. Impression: Technically successful and uncomplicated CT-guided core needle biopsy of a left lower lobe mass as described above. Signed by: Alfredito Washington MD on 01/27/2019 1:22 PM
--- NOTE | 2019-01-27 14:09 | Diagnostic Imaging Report ---
Chest, portable AP view History: Post lung biopsy Comparison: CT of the chest dated 01/27/2019 IMPRESSION: There is no evidence of pneumothorax status post lung biopsy. The heart is within normal limits of size. Patient is status post median sternotomy. There is dense left lower lobe consolidation/mass. The right lung is well-inflated. No pleural effusion. Signed by: Alfredito Washington MD on 01/27/2019 2:06 PM
--- NOTE | 2019-01-27 16:00 | Diagnostic Imaging Report ---
Chest, portable AP view History: Status post left lung biopsy Comparison: Earlier the same day at 1355 IMPRESSION: There is no evidence of pneumothorax status post lung biopsy. The heart is within normal limits of size. Patient is status post median sternotomy. There is dense left lower lobe consolidation/mass. The right lung is well-inflated. No pleural effusion. Signed by: Alfredito Washington MD on 01/27/2019 3:57 PM
== END ==
LOC: CT 10:17
PROVIDERS: ATTEND Internal Medicine Pulmonary Disease
DX: R91.8 Other nonspecific abnormal finding of lung field (principal)
CPT/HCPCS: 32405; 36415; 71045; 77012; 85014; 85049; 85610; 85730; 88305; J2001; J2250; J3010